=== PATIENT | male | born 1975 | race Caucasian/White ===

== ENCOUNTER 2017-11-24 19:39 | Emergency (ER) | payer BC ==
[2017-11-24 20:12] VITALS: RESP 18
[2017-11-24] MEDS ORDERED: ASPIRIN 81 MG PO STA (20:45)
[2017-11-24] MEDS ORDERED: KETOROLAC 30 MG/ML 1 ML VIAL IVP STA (20:45)
--- NOTE | 2017-11-24 20:49 | ED ---
General Adult HPI - General Source: patient Mode of arrival: ambulatory Limitations: no limitations <Bubba Cruz - Last Filed: 11/24/17 20:46> <Josafat Kerr - Last Filed: 11/24/17 22:49> - General Chief complaint: Recheck/Abnormal Lab/Rx Stated complaint: High BP Time Seen by Provider: 11/24/17 20:22 - History of Present Illness Initial comments: This 42-year-old white male presents with a complaint of some pain into his left arm, left shoulder, and left shoulder blade that has been intermittent over the last 3 weeks. He states that he has not had it for the last 1 week. He states that he does repetitive movements at work and thought that his shoulder and arm pain was related to this. He also is having some left facial numbness. He has had occasional headaches as well. He denies any extremity weakness. He denies any chest pains or shortness of breath. He states that he has had significant stress recently. He had some bad news today and developed some lightheadedness nausea and vomiting afterwards. He denies any previous cardiac abnormalities. He does have a history of hypertension in the past but was taken off medications because it resolved. He is worried about his blood pressure. He is worried about his heart. He denies any other complaints or modifying factors. (Bubba Cruz) - Related Data Allergies Allergy/AdvReac Type Severity Reaction Status Date / Time cephalexin [From Keflex] Allergy Dyspnea Verified 11/24/17 20:55 Review of Systems ROS Other: All systems not noted in ROS Statement are negative. <Bubba Cruz - Last Filed: 11/24/17 20:46> ROS Other: All systems not noted in ROS Statement are negative. <Josafat Kerr - Last Filed: 11/24/17 22:49> ROS Statement: Those systems with pertinent positive or pertinent negative responses have been documented in the HPI. Past Medical History Past Medical History: Hypertension History of Any Multi-Drug Resistant Organisms: None Reported Past Surgical History: Tonsillectomy Past Psychological History: No Psychological Hx Reported Smoking Status: Current every day smoker Past Alcohol Use History: None Reported Past Drug Use History: None Reported <Bubba Cruz - Last Filed: 11/24/17 20:46> General Exam Limitations: no limitations <Bubba Cruz - Last Filed: 11/24/17 20:46> <Josafat Kerr - Last Filed: 11/24/17 22:49> - General Exam Comments Initial Comments: GENERAL: The patient is well nourished and well hydrated. VITAL SIGNS: Heart rate, blood pressure, respiratory rate reviewed as recorded in nurse's notes. EYES: Pupils are round and reactive. Extraocular movements are intact. No conjunctival / lid redness or swelling. ENT: No external evidence of injury, swelling, or ecchymosis. Airway is patent. Throat is clear. NECK: Nontender. No swelling or evidence of injury. No subcutaneous emphysema. Trachea is midline. No thyroid mass. HEART: Regular rate and rhythm. Good peripheral pulses. LUNGS/CHEST: Breath sounds clear and equal bilaterally. No rales, rhonchi, or wheezes. No ecchymosis, subcutaneous emphysema, or tenderness. ABDOMEN: Abdomen soft without tenderness. No palpable masses or organomegaly. No peritoneal signs. No abdominal wall swelling or ecchymosis. EXTREMITIES: No extremity tenderness. Normal muscle tone and function. No thoracolumbar tenderness. NEUROLOGIC: Sensation is grossly intact. Cranial nerve exam reveals face is symmetrical, tongue is midline, speech is clear. SKIN: No abrasions or ecchymosis is noted. No induration or masses noted. PSYCHIATRIC: Alert and oriented. Appears mildly anxious. (Bubba Cruz) Vital Signs 11/24/17 11/24/17 11/24/17 20:08 21:12 22:12 Temperature 98.2 F Pulse Rate 81 78 76 Respiratory 18 18 18 Rate Blood Pressure 131/92 136/86 121/79 O2 Sat by Pulse 98 97 96 Oximetry Medical Decision Making <Bubba Cruz - Last Filed: 11/24/17 20:46> - Lab Data Result diagrams: 11/24/17 20:36 11/24/17 20:36 <Josafat Kerr - Last Filed: 11/24/17 22:49> - Medical Decision Making The patient was seen and examined. All diagnostics were reviewed. EKG shows a normal sinus rhythm at a rate of 86. There is no acute ST-T wave changes identified. The TN intervals 140, QRS duration is 88, and the QTC intervals 435. An IV is started and he does receive some Toradol. He also receives an aspirin. Further care will be passed off to oncoming physician. (Bubba Cruz) - Lab Data Lab Results 11/24/17 11/24/17 11/24/17 Range/Units 20:36 20:36 20:36 WBC 9.7 (3.8-10.6) k/uL RBC 4.94 (4.30-5.90) m/uL Hgb 15.9 (13.0-17.5) gm/dL Hct 48.4 (39.0-53.0) % MCV 97.9 (80.0-100.0) fL MCH 32.2 (25.0-35.0) pg MCHC 32.9 (31.0-37.0) g/dL RDW 13.7 (11.5-15.5) % Plt Count 230 (150-450) k/uL Neutrophils % 60 % Lymphocytes % 30 % Monocytes % 5 % Eosinophils % 2 % Basophils % 1 % Neutrophils # 5.9 (1.3-7.7) k/uL Lymphocytes # 3.0 (1.0-4.8) k/uL Monocytes # 0.5 (0-1.0) k/uL Eosinophils # 0.2 (0-0.7) k/uL Basophils # 0.1 (0-0.2) k/uL PT (9.0-12.0) sec INR (<1.2) APTT (22.0-30.0) sec Sodium 140 (137-145) mmol/L Potassium 4.7 (3.5-5.1) mmol/L Chloride 104 (98-107) mmol/L Carbon Dioxide 28 (22-30) mmol/L Anion Gap 8 mmol/L BUN 11 (9-20) mg/dL Creatinine 0.97 (0.66-1.25) mg/dL Est GFR (MDRD) Af Amer >60 (>60 ml/min/1.73 sqM) Est GFR (MDRD) Non-Af >60 (>60 ml/min/1.73 sqM) Glucose 99 (74-99) mg/dL Calcium 9.7 (8.4-10.2) mg/dL Magnesium 2.0 (1.6-2.3) mg/dL Total Bilirubin 0.3 (0.2-1.3) mg/dL AST 17 (17-59) U/L ALT 38 (21-72) U/L Alkaline Phosphatase 73 (38-126) U/L Total Creatine Kinase 49 L (55-170) U/L CK-MB (CK-2) 0.4 (0.0-2.4) ng/mL CK-MB (CK-2) Rel Index 0.8 Troponin I <0.012 (0.000-0.034) ng/mL Total Protein 6.9 (6.3-8.2) g/dL Albumin 4.0 (3.5-5.0) g/dL 11/24/17 Range/Units 20:36 WBC (3.8-10.6) k/uL RBC (4.30-5.90) m/uL Hgb (13.0-17.5) gm/dL Hct (39.0-53.0) % MCV (80.0-100.0) fL MCH (25.0-35.0) pg MCHC (31.0-37.0) g/dL RDW (11.5-15.5) % Plt Count (150-450) k/uL Neutrophils % % Lymphocytes % % Monocytes % % Eosinophils % % Basophils % % Neutrophils # (1.3-7.7) k/uL Lymphocytes # (1.0-4.8) k/uL Monocytes # (0-1.0) k/uL Eosinophils # (0-0.7) k/uL Basophils # (0-0.2) k/uL PT 9.9 (9.0-12.0) sec INR 1.0 (<1.2) APTT 25.6 (22.0-30.0) sec Sodium (137-145) mmol/L Potassium (3.5-5.1) mmol/L Chloride (98-107) mmol/L Carbon Dioxide (22-30) mmol/L Anion Gap mmol/L BUN (9-20) mg/dL Creatinine (0.66-1.25) mg/dL Est GFR (MDRD) Af Amer (>60 ml/min/1.73 sqM) Est GFR (MDRD) Non-Af (>60 ml/min/1.73 sqM) Glucose (74-99) mg/dL Calcium (8.4-10.2) mg/dL Magnesium (1.6-2.3) mg/dL Total Bilirubin (0.2-1.3) mg/dL AST (17-59) U/L ALT (21-72) U/L Alkaline Phosphatase (38-126) U/L Total Creatine Kinase (55-170) U/L CK-MB (CK-2) (0.0-2.4) ng/mL CK-MB (CK-2) Rel Index Troponin I (0.000-0.034) ng/mL Total Protein (6.3-8.2) g/dL Albumin (3.5-5.0) g/dL Disposition <Bubba Cruz - Last Filed: 11/24/17 20:46> <Josafat Kerr - Last Filed: 11/24/17 22:49> Clinical Impression: Headache, Left facial numbness, Left arm pain, Anxiety Disposition: HOME SELF-CARE Condition: Good Instructions: Chest Pain (ED) Referrals: Darrell Shipley MD [Primary Care Provider] - 1-2 days Yadiel Santamaria MD [STAFF PHYSICIAN] - 1-2 days
[2017-11-24 21:15] LABS: Basophils # (A) 0.1 k/uL (0-0.2); Basophils % (A) 1 %; Eosinophils # (A) 0.2 k/uL (0-0.7); Eosinophils % (A) 2 %; HCT 48.4 % (39.0-53.0); HGB 15.9 gm/dL (13.0-17.5); Lymphocytes % (A) 30 %; MCH 32.2 pg (25.0-35.0); MCHC 32.9 g/dL (31.0-37.0); MCV 97.9 fL (80.0-100.0); Mean Platelet Volume 7.7; Monocytes # (A) 0.5 k/uL (0-1.0); Monocytes % (A) 5 %; Neutrophils # (A) 5.9 k/uL (1.3-7.7); Neutrophils % (A) 60 %; Platelet Count 230 k/uL (150-450); RBC 4.94 m/uL (4.30-5.90); RDW 13.7 % (11.5-15.5); WBC 9.7 k/uL (3.8-10.6)
[2017-11-24 21:23] LABS: ALT 38 U/L (21-72); AST 17 U/L (17-59); Alkaline Phosphatase 73 U/L (38-126); Anion Gap 8 mmol/L; Blood Urea Nitrogen 11 mg/dL (9-20); Calcium 9.7 mg/dL (8.4-10.2); Carbon Dioxide 28 mmol/L (22-30); Chloride 104 mmol/L (98-107); Glucose 99 mg/dL (74-99); Potassium 4.7 mmol/L (3.5-5.1); Sodium 140 mmol/L (137-145); Total Bilirubin 0.3 mg/dL (0.2-1.3); Total Protein 6.9 g/dL (6.3-8.2)
[2017-11-24 21:25] LABS: Partial Thromboplastin Time 25.6 sec (22.0-30.0); Prothrombin Time 9.9 sec (9.0-12.0)
--- NOTE | 2017-11-24 21:27 | CT ---
EXAMINATION TYPE: CT brain wo con DATE OF EXAM: 11/24/2017 COMPARISON: NONE HISTORY: Dizziness and hypertension today. CT DLP: 1043 mGycm. Automated Exposure Control for Dose Reduction was Utilized. TECHNIQUE: CT scan of the head is performed without contrast. FINDINGS: There is no acute intracranial hemorrhage, mass effect, or midline shift identified. The ventricles and sulci are within normal limits in size. Nick-white matter differentiation is maintai vic. Mastoid air cells show no suspicious opacification. There is mild mucosal thickening ethmoid sin uses bilaterally left greater than right otherwise the globes are intact and the visualized sinuses a re clear. IMPRESSION: No acute intracranial hemorrhage, mass effect, or midline shift is seen.
[2017-11-24 21:32] LABS: Creatine Kinase 49 U/L (55-170)
[2017-11-24 21:45] LABS: Creatine Kinase MB 0.4 ng/mL (0.0-2.4); Troponin I <0.012 ng/mL (0.000-0.034)
--- NOTE | 2017-11-24 22:50 | XR ---
EXAMINATION TYPE: XR chest 2V DATE OF EXAM: 11/24/2017 COMPARISON: NONE HISTORY: Chest pain TECHNIQUE: Frontal and lateral views of the chest are obtained. FINDINGS: Heart and mediastinum are normal. Lungs are clear. Diaphragm is normal. There are chest le ads. Bony thorax is intact. IMPRESSION: Normal chest
[2017-11-24 22:57] VITALS: BP 127/87; PULSE 87; TEMP 97.4
== END 2017-11-24 22:57 | disposition home or self-care (01) ==
LOC: EC 19:39
DX: M79.602 Pain in left arm (principal); R51 Headache; R20.0 Anesthesia of skin; F41.9 Anxiety disorder, unspecified; I10 Essential (primary) hypertension; F17.200 Nicotine dependence, unspecified, uncomplicated; Z88.1 Allergy status to other antibiotic agents
CPT/HCPCS: 36415; 80053; 82550; 82553; 83735; 84484; 85025; 85610; 85730; 71046; 70450; 99284; 96374; J1885